=== PATIENT | male | born 1950 | race Caucasian/White ===

== ENCOUNTER → 2024-11-21 12:13 | Outpatient (REF) | payer MEDICARE, SELFPAY ==
--- NOTE | 2024-11-21 12:13 | S_PTH ---
PATIENT: Pascual Newell LOC: [facility] U#:[id number] AGE/SX: 74/M ROOM: RE11/21/[address]: Ekaterina Cardoza MD : 1950 BED: DIS: SPEC #: [id number] RECD: 11/21/24 12:27 STATUS: DAWOOD REMaurizio #: [id number] CYNTHIA: 11/21/24 12:[address]: Ekaterina Cardoza DEPT: [facility] Surgical RECD BY: Edwardo Medrano ENTERED: 11/21/24 12:28 SP TYPE: Surgical OTHR DR: UNKNOWN,DOCTOR Tissues: A - Skin Procedures: Hematoxylin and Eosin Stain Gross and Microscopic Level 4
--- OUTSIDE RECORDS SUMMARY | 2024-11-21 13:10 | XMS_ITS | Encounter Summary ---
Author Organization [facility] Address [address] [place] [address] Phone Care Team Providers Care Financial Service Representative Name Role Phone Rustam Fischer MD Primary Care Provider [phone] Reason for Visit * Reason Comments Medication Refill Encounter Details Date Type Department Care Team (Late st Contact Info) Description 11/15/2022 Refill [facility]2 [place] [address] Rustam Fischer MD #[address] [address] Medication Refill Social History Tobacco Use Types Packs/Day Years Used Date Smoking Tobacco: Former Cigarettes 1 13 0 09/28/1975 - 09/27/1988 Smokeless Tobacco: Current Chew Alcohol Use Standard Drinks/Week Comments Never 0 (1 standard drink = 0.6 oz pur e alcohol) AUDIT-C Answer Date Recorded Frequency of Alcohol Consumption Never 09/27/2018 Average Number of Drinks Not on file 019 Frequency of Binge Drinking Not on file 09/12 PHQ-2 Answer Date Recorded Total Score - Questions 1-9 0 09/13 Education Answer Date Recorded What is the highest level of school you have completed or the highest degree you have received? Some college, no degree 03/02/2022 Sex and Gender Information Value Date Recorded Sex Assigned at Not on file Legal Sex Male 10:25 PM CDT Gender Identity Not on file Sexual Orientation Not on file COVID-19 Exposure Response Date Recorded In the last 10 days, have yo u been in contact with someone who was confirmed or suspected to have Coronavirus/COVID-19? No / Unsure 11/05/2022 7:51 AM CDT documented as of this encounter Miscellaneous Notes * Telephone Encounter - Dianne Bruner RN - 11/16/2022 1:19 PM CDT Images from the original note were not included. Citalopram Hydrobromide Dispensed Days Supply Quantity Provider Pharmacy CITALOPRAM 10MG TABLETS 11/12/2022 90 90 Each Rustam Fischer MD [facility] #... documented in this encounter Plan of Treatment Upcoming Encounters Date Type Department Care Team (Late st Contact Info) Description 02/14/2025 9:30 AM CDT Lab [facility] #[address] [address] [facility]William Lab/Ancillary 02/21/2025 9:00 AM CDT Office Visit [facility] - [place] #2 [place] [address] Rustam Fischer MD #[address] [address] documented as of this encounter Visit Diagnoses Not on filedocumented in this encounter Additional Health Concerns Assessment Noted Time PHQ-9 Depression Total Score: 0 04/04/20 21 9:14 AM CDT documented as of this encounter Care Teams Financial Service Representative Relationship Specialty Start Date End Date Rustam Fischer MD #[address] [address] PCP - General Family Medicine 09/07/18 documented as of this encounter
--- OUTSIDE RECORDS SUMMARY | 2024-11-21 13:10 | XMS_ITS | Encounter Summary ---
Author Organization [facility] Address [address] [place] [address] Phone Care Team Providers Care Heat Treater Head Name Role Phone Rustam Fischer MD Primary Care Provider [phone] Reason for Visit * Reason Comments Medication Refill Encounter Details Date Type Department Care Team (Late st Contact Info) Description 04/30/2020 Refill [facility] [address] [place], [place] [address] Rustam Fischer MD #[address] [address] Medication Refill Social History Tobacco Use Types Packs/Day Years Used Date Smoking Tobacco: Former Cigarettes 1 13 0 09/28/1975 - 09/27/1988 Smokeless Tobacco: Never Alcohol Use Standard Drinks/Week Comments Never 0 (1 standard drink = 0.6 oz pur e alcohol) AUDIT-C Answer Date Recorded Frequency of Alcohol Consumption Never 09/27/2018 Average Number of Drinks Not on file 019 Frequency of Binge Drinking Not on file 09/12 PHQ-2 Answer Date Recorded PHQ-2 Score 0 02/28/2019 Sex and Gender Information Value Date Recorded Sex Assigned at Not on file Legal Sex Male 10:25 PM CDT Gender Identity Not on file Sexual Orientation Not on file documented as of this encounter Miscellaneous Notes * Telephone Encounter - Rustam Fischer MD - 05/01/2020 1:16 PM CST Prescription approved. Please call in NEERING SECRETARY * Telephone Encounter - Claudia Simmons RN - 05/01/2020 1:01 PM ENGINEERING SECRETARY Patient calling to check the status of this request Advised patient that he is due for an appointment prior to refilling medication Appointment scheduled for 05-06-2020 Patient is requesting a short supply sent to pharmacy until he can be seen by PCP Rx pended Routing to provider for review and approval. NEERING SECRETARY * Telephone Encounter - Zulema Araujo RN - 04/30/2020 3:38 PM CST Medication failed the protocol, provider to review and approve the medication order if appropriate. Requested Prescriptions Pending Prescriptions Disp Refills lisinopril (PRINIVIL, ZESTRIL) 10 MG Tablet [Pharmacy Med Name: LISINOPRIL 10MG TABLETS] 90 Tab 2 Sig: TAKE 1 TABLET BY MOUTH DAILY Cardiovascular: CONRAD Inhibitors Failed - 04/30/2020 2:47 PM Failed - Valid encounter within last 12 months Past Office Visits Recent Outpatient Visits 1 year ago Essential hypertension [facility] - Angelic Birmingham APN, CNP 1 year ago Essential [facility] [place] [place] [facility] 1 year ago Physical exam, annual (Adult) [facility] - Rustam Lucia MD Upcoming Appointments [facility] - Recent and Past Visits Recent Visits Date Type Provider Dept 04/04/19 Office Visit Angelic Lazar APN, CNP [facility] 03/22/19 Office Visit Angelic Lazar APN, CNP [facility] Showing recent visits within past 460 days with a meds authorizing provider and meeting all other requirements Future Appointments No visits were found meeting these conditions. Showing future appointments within next 90 days with a meds authorizing provider and meeting all other requirements Failed - Last BP in normal range BP Readings from Last 1 Encounters: 04/04/19 130/76 NEERING SECRETARY documented in this encounter Plan of Treatment Upcoming Encounters Date Type Department Care Team (Late st Contact Info) Description 02/14/2025 9:30 AM CDT Lab [facility] [address] [address] [facility] 02/21/2025 9:00 AM CDT Office Visit [facility] [place] #2 [place] [address] Rustam Fischer MD #[address] [address] documented as of this encounter Visit Diagnoses Not on filedocumented in this encounter Additional Health Concerns Assessment Noted Time PHQ-9 Depression Total Score: 0 09/08/19 19 12:00 PM CDT documented as of this encounter Care Teams Heat Treater Head Relationship Specialty Start Date End Date Rustam Fischer MD [address] [address] PCP - General Family Medicine 09/07/18 documented as of this encounter
--- OUTSIDE RECORDS SUMMARY | 2024-11-21 13:10 | XMS_ITS | Continuity of Care Document ---
Author Organization [facility] Address [address] [place] [address] [address] [place] [address] Phone Care Team Providers Care Speech Writer Name Role Phone Landon Hickey MD, FACS Unavailable Unavailab le Allergies, Adverse Reactions, Alerts Substance Reaction Status Criticality No Known Allergies Active No Inform ation Medications Medication Instructions Dosage Effective Dates (start - stop) Status Comments ACYCLOVIR 400MG TABLETS TAKE 1 TABLET BY MOUTH EVERY DAY - Active lisinopril 10 mg tablet take 1 tablet by oral route every day 10 MG - Active Procedures Procedure Date No Charge Optomap Fundus Photos 021 Eye Exam & Treatment Office/outpatient Visit, Est No Charge Optomap Fundus Photos 021 Office/outpatient Visit, Est Office/outpatient Visit, Est Office/outpatient Visit, Est Office/outpatient Visit, Est Office/outpatient Visit, Est Office/outpatient Visit, Est Office/outpatient Visit, Est Corneal Pachymetry Eye Exam, New Patient Advance Directives Directive Yes / No Effective Date File Name No Information Encounters Encounter Description Practice Location Reason(s) For Visit Diagnoses Date Provider Providers Copied on Encounter [facility], [id number] [place] [address] [address], [place], [place], [id number], [place] tel:[phone] [place] No Information 3 Edelmira Navarrete. [address] [place] [address], [address], [place], [place], [id number], [place]. tel:[phone] [facility], [address] [place] [address] [address], [place], [place], [address], [place] tel:[phone] SEC [place] Mcdaniel No Information 2 Edelmira Navarrete. [address] [place] [address] [address] [facility], [address], [place], [place], [address], [place]. tel:[phone] [facility], [address] [place] [address] [address], [place], [place], [address], [place] [phone] SEC William ARELLANO Professional Cataract evaluation (chief complaint) Nevus of iris of right eyeMinor opacity of cornea, right eyeAge-relate d nuclear cataract, right eyeCombined forms of age-related cataract, left eye 1 Albaro Orozco. [address] [facility], [address], [place], [place], [address], [place]. tel:[phone] Referring Provider: Rustam Fischer MD S, [address] [place], [address]. tel:[phone] Office/outpa tient Visit, [facility], [address] [place] [address] [address], [place], [place], [address], [place] tel:[phone] SEC Randall Mcdaniel Complete Exam (chief complaint) Combined forms of age-related cataract, bilateralMino r opacity of cornea, right eye 1 Edelmira Navarrete. [address] [place] [address] [address] [facility], [address], [place], [place], [address], [place]. tel:[phone] Referring Provider: Rustam Fischer MD S, [address] [place], [address]. tel:[phone] Office/outpa tient Visit, [facility], [address] [place] [address] [address], [place], [place], [address], [place] tel:[phone] SEC William ARELLANO Professional 3 week f/u HZV (chief complaint) HSV (herpes simplex virus) dendritic keratitis Oct- 9 Augustina OD Kennedy. [address] [facility], [address] [place] [address], [place], [address], [place]. tel:[phone] Referring Provider: Rustam Laureano, [address] [place], [address]. tel:[phone] Office/outpa tient Visit, [facility], [address] [place] [address] [address], [place], [place], [address], [place] [phone] SEC William ARELLANO Professional 1 week cornea check (chief complaint) HSV (herpes simplex virus) dendritic keratitisCorn eal edema of right eye Feb- 9 Augustina OD Kennedy. [address] [facility], [address] [place] [address], [place], [address], [place]. tel:[phone] Referring Provider: Rustam Laureano, [address] [place], [address]. tel:[phone] Office/outpa tient Visit, [facility], [address] [place] [address] [address], [place], [place], [address], [place] tel:[phone] SEC William ARELLANO Professional mo Cornea check (chief complaint) HSV (herpes simplex virus) dendritic keratitisCorn eal epithelial defect Feb- 9 Augustina OD Kennedy. [address] [facility], [address] [place] [address], [place], [address], [place]. tel:[phone] Referring Provider: Rustam Laureano, [address] [place], [address]. tel:[phone] Office/outpa tient Visit, [facility], [address] [place] [address] [address], [place], [place], [address], [place] tel:[phone] SEC William ARELLANO Professional 2 wk Cornea check (chief complaint) Acute iritis of right eye Jan- 9 Augustina OD Kennedy. [address] [facility], [address] [place], [address], [place]. tel:[phone] Referring Provider: Rustam Laureano, [address] [place], [address]. tel:[phone] Office/outpa tient Visit, [facility], [address] [place] [address] [address], [place], [place], [address], [place] tel:[phone] SEC William ARELLANO Professional Follow up visit (chief complaint) HSV (herpes simplex virus) dendritic keratitis 9 Augustina VANE Kennedy. [address] [facility], [address] [facility], [place], [address], [place]. tel:[phone] Referring Provider: Rustam Laureano, [address] [place], [address]. tel:[phone] Office/outpa tient Visit, [facility], [address] [place] [address] [address], [place], [place], [address], [place] tel:[phone] SEC William ARELLANO Professional office visit (chief complaint) Corneal epithelial defectHSV (herpes simplex virus) dendritic keratitis 9 Edelmira Navarrete. [address] [place] [address] [address] [facility], [address], [place], [place], [address], [place]. tel:[phone] Referring Provider: Rustam Laureano, [address] [place], [address]. tel:[phone] Office/outpa tient Visit, [facility], [address] [place] [address] [address], [place], [place], [address], [place] tel:[phone] SEC William ARELLANO Professional 4 day f/u to Cornea Edema (chief complaint) Corneal edema of right eyeAcute iritis of right eye 9 Albaro Orozco. [address] [facility], [address], [place], [place], [address], [place]. tel:[phone] Referring Provider: Rustam Laureano, [address] [facility] [place], [address]. tel:[phone] [facility], [address], [place], [place], [address], [place] tel:[phone] SEC William ARELLANO Professional No Information 9 Albaro Orozco. [address] [facility], [address], [place], [place], [address], [place]. tel:[phone] [facility], [address], [place], [place], [address], [place] tel:[phone] SEC William ARELLANO Professional Office Visit (chief complaint) Corneal edema of right eyeNuclear sclerosis of both eyes 9 Augustina Benavides. [address] [facility], 6th Floor, [place], [address], . tel:[phone] Referring Provider: Rustam Fischer MD S, [address] [place], [address]. tel:[phone] [facility], [address], [place], [place], [address], [place] tel:[phone] SEC William ARELLANO Professional No Information 9 Albaro Orozco. [address] [facility] [address], [place], [place], [address], [place]. tel:[phone] Family History Family Member Type Diagnosis Age At Onset Problem (finding) Family history of Diabe padmini mellitus Payers Payer name Insurance type Covered republican ID Authoriza tion(s) [employer] Medicare CI [id number] Social History Type Description Quantity Date Captured Comments Sex Male Smoking Status No Information Chief Complaint And Reason For Visit No Information Reason For Referral Reason For Referral No Information Plan Of Treatment Date Type Action Status Goal Tobacco cessation counseling completed Patient Education Cataracts: Care Instruc tions completed Patient Education Cataracts: Care Instruc tions completed Patient Education Iritis: Care Kathrine solorzano completed History Of Present Illness Encounter Date Complaint History Of Prese nt Illness Cataract evaluation The 70 year old male presents for evaluation of Cataract evaluation in the right eye and left eye. Hx of HZV OD and Cataracts OU. Patient denies any changes with eyes. VA is fine. Patient states he does not want to consider cataract sx at this time not until he has to. Patient taking Acyclovir qd po. Complete Exam The 69 year old male presents for evaluation of Complete Exam in the right eye and left eye. Patient has hx of HZV OD and cataracts ou. Patient takes acyclovir 400 mg po qd. Refills sent. Patient uses a PF AT prn. Patient states OD liu a lot. Patient states every now and then he has FBS and uses Pred but not often. 3 week f/u HZV The 68 year old male presents for evaluation of 3 week f/u HZV in the right eye. Patient states the right eye seems to be doing better today. Patient taking acyclovir and referesh tears prn. 1 week cornea check The 68 year old male presents for evaluation of 1 week cornea check in the right eye. Hx of HZV OD. Patient states the right eye seems better. Patient states the Zirgan gtt never came into the pharm for him to bean picker. Patient states the last couple of days the right eye was very cloudy but got better. today. Patient using art tears and Acyclovir 400 mg BID po he has 1 pill left. 1 mo Cornea check The 68 year ol d male presents for evaluation of 1 mo Cornea check in the right eye. Pt reports he is using Acyclovir 400 mg BID PO (just restarted yesterday), PF AFT TID-QID OD, and Pred QD PRN OD. Pt reports OD was doing really good for a long time, but last week it started to get fuzzy again. 2 wk Cornea check The 68 year ol d male presents for evaluation of 2 wk Cornea check in the right eye. Pt reports he is using Pred BID OD. Pt reports OD is doing a lot better. Follow up visit The 68 year old male presents for a 3 month cornea check OD. Patient states OD was doing really good until a few days ago. Patient states OD seems hazy and a little irritated and patient started using Pred again but is out of Pred. Patient is not taking Acyclovir at this time. office visit The 68 year old male presents for a 4 day follow up for Acute Iritis OD per Dr. Irvin. Patient is taking Acyclovir 400mg 5x a day and using Pred Q2hrwa. Patient states vision OD is 50% better. Unable to perform pachs OD. 4 day f/u to Cornea Edema The 68 year old male presents for evaluation of 4 day f/u to Cornea Edema in the right eye. Hx of Cornea Edema and Cataracts OU. Patient states he thinks his VA is better still blurry but not as bad. Patient using Tamia 128 qd OD and Ket TID OD. Patient states the instructions on Tamia 128 said to use once a day not twice a day. Several attempts unable to get pachs OD. 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 Patient had an eye exam at the beginning of the year and there were no problems. Patient states his right eye felt like it had something in it two weeks ago and even now his right eye is still blurry. Patient also states the right eye is very sensitive to light. Patient states he also notes occasional floaters in both eyes. 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
--- OUTSIDE RECORDS SUMMARY | 2024-11-21 13:10 | XMS_ITS | Clinical Summary ---
Author Organization [facility] Address [address] [place] [address] Phone Care Team Providers Care Conference Center Manager Name Role Phone Rustam Fischer MD Primary Care Provider [phone] Allergies No known active allergies Medications acyclovir (ZOVIRAX) 400 MG Tablet TK 1 T PO QD 0 Active Glucose Blood (OneTouch Ultra) StripIndication s:Prediabetes Test fasting sugars twice weekly 50 Strip 3 2 Active Glucose Blood (Accu-Chek Karen Plus) StripIndication s:Prediabetes Test blood sugars twice weekly 100 Strip 3 2 Active naproxen (NAPROSYN) 500 MG Tablet Take 1 Tablet by mouth 2 times daily (with meals). 60 Tablet 6 3 Active testosterone (Testim) 50 MG/5GM (1%) GelIndications: Hypogonadism in male Apply 25 mg daily. 90 Packet 3 4 Active Additional Information Patient not taking.Reported on 11/17/2024 Testosterone (AndroGel) 20.25 MG/1.25GM (1.62%) GelIndications: Hypogonadism in male 20.25 mg by Transdermal route daily. 1 Box . 3 4 Active Additional Information Patient not taking.Reported on 11/17/2024 busPIRone (BUSPAR) 5 MG Tablet TAKE 1 TABLET BY MOUTH THREE TIMES DAILY 270 Tablet 4 Active lisinopril (PRINIVIL, ZESTRIL) 10 MG Tablet TAKE 1 TABLET BY MOUTH DAILY 90 Tablet 1 5 Active amoxicillin (AMOXIL) 500 MG Capsule Take 1 Capsule by mouth 2 times daily for 10 days. 20 Capsule 5 11/28/19 25 Active Active Problems No known active problems Encounters Date Type Department Care Team Description 11/17/2024 4:30 PM CDT [facility] [address] [place] [address] Jolynn Farrell, DRYWALL FINISHER FOREMAN, SPACE ENGINEER Pharyngitis, unspecified etiology (Primary Dx); Sore throat Discharge Disposition: Discharged to home or Selfcare 11/17/2024 Travel from Last 3 Months Immunizations Immunization Administration Dates Next Due Covid-19, Mrna, Lnp-s, PF, 1 00 mcg/0.5 mL Dose (Moderna) 10/10/2020,09/12/2020 Influenza Vaccine, Quadrivalent, PF 08/2023,02/17/2022,04/04/2021,2019,03/22/2019 Influenza, Injectable, Quadrivalent 03/02/2018,0 06/23/2016 Influenza, Trivalent, Adjuvanted, PF 08/14/2024 Pneumococcal Vaccine - 13 Valent 01/27/2017,09/13 Pneumococcal Vaccine Adult - 23 Valent 09/07/2018,03/02/2018,03/02/2018 TDAP Vaccine 11/23/2019,10/02/2015 Family History Medical History Relation Name Comments Coronary Artery Disease Father Diabetes Father Kidney Disease Father Cancer Maternal Grandmother leukemi a Cancer Mother breast Lung Cancer Mother Coronary Artery Disease Paternal Grandfather Cancer Son Sullivan sarcoma Relation Name Status Comments Father Maternal Grandmother Mother Paternal Grandfather Son Social History Tobacco Use Types Packs/Day Years Used Date Smoking Tobacco: Former Cigarettes 1 13 0 09/28/1975 - 09/27/1988 Smokeless Tobacco: Current Chew Tobacco Cessation:Ready to Q uit: Not Asked; Counseling Given: Not Answered Alcohol Use Standard Drinks/Week Comments Never 0 (1 standard drink = 0.6 oz pur e alcohol) [facility] Utilities Answer Date Recorded In the past 12 months has th e electric, gas, oil, or water company threatened to shut off services in your home? No 08/12/2024 Social Connection and Isolation Panel Answer Date Recorded In a typical week, how many times do you talk on the phone with family, friends, or neighbors? More than three times a week 08/12/2024 How often do you get togethe r with friends or relatives? Three times a week 08/12/2024 How often do you attend chur or sikhism services? More than 4 times per year 08/12/2024 Do you belong to any clubs o r organizations such as yazidi groups, unions, fraternal or athletic groups, or school groups? No 08/12/2024 How often do you attend meet ings of the clubs or organizations you belong to? Never 08/12/2024 Are you , , di vorced, , never , or living with a partner? 08/12/2024 AUDIT-C Answer Date Recorded Q1: How often do you have a drink containing alcohol? Never 08/12/2024 Q2: How many drinks containi ng alcohol do you have on a typical day when you are drinking? Patient does not drink Q3: How often do you have si x or more drinks on one occasion? Never 08/12/2024 Overall Financial Resource Strain (CARDIA) Answe r Date Recorded How hard is it for you to pa y for the very basics like food, housing, medical care, and heating? Somewhat hard 08/12/2024 PHQ-2 Answer Date Recorded Total Score - Questions 1-9 0 08/2023 [facility] - Occupational Stress Questionnaire Answer Date Recorded Do you feel stress - tense, restless, nervous, or anxious, or unable to sleep at night because your mind is troubled all the time - these days? To some extent 08/12/2024 Exercise Vital Sign Answer Date Recorde d On average, how many days pe r week do you engage in moderate to strenuous exercise (like a brisk walk)? 5 days 08/12/2024 On average, how many minutes do you engage in exercise at this level? 30 min 08/12/2024 Hunger Vital Sign Answer Date Recorded Within the past 12 months, y ou worried that your food would run out before you got the money to buy more. Sometimes true Within the past 12 months, t he food you bought just didn't last and you didn't have money to get more. Often true 06/2024 PRAPARE - Transportation Answer Date Re corded In the past 12 months, has l ack of transportation kept you from medical appointments or from getting medications? No 06/2024 In the past 12 months, has l ack of transportation kept you from meetings, work, or from getting things needed for daily living? Yes 08/12/2024 Housing Stability Vital Sign Answer Jose e Recorded In the last 12 months, was t here a time when you were not able to pay the mortgage or rent on time? No 06/15/2023 In the last 12 months, how many places have you lived? 1 06/15/2023 In the last 12 months, was t here a time when you did not have a steady place to sleep or slept in a senior living (including now)? No 06/15/2023 Housing Stability Vital Sign Answer Jose e Recorded In the last 12 months, was t here a time when you were not able to pay the mortgage or rent on time? No 08/12/2024 In the past 12 months, how m any times have you moved where you were living? 0 08/12/2024 At any time in the past 12 m onths, were you homeless or living in a senior living (including now)? No 08/12/2024 Education Answer Date Recorded What is the highest level of school you have completed or the highest degree you have received? Some college, no degree 03/02/2022 Sex and Gender Information Value Date Recorded Sex Assigned at Not on file Legal Sex Male 10:25 PM CDT Gender Identity Not on file Sexual Orientation Not on file Last Filed Vital Signs Vital Sign Reading Time Taken Comments Blood Pressure 132/68 11/17/2024 4:36 PM CDT Pulse 98 11/17/2024 4:36 PM CDT Temperature 36.3 C (97.4 F) 11/17/2024 4:36 PM CDT Respiratory Rate 20 11/17/2024 4:36 PM CDT Oxygen Saturation 98% 11/17/2024 4:36 PM CDT Inhaled Oxygen Concentration - - Weight 123.4 kg (272 lb) 08/14/2024 3:06 PM PRESIDENT AND CEO Height 180.3 cm (5' 11) 08/14/2024 3:06 PM PRESIDENT AND CEO Body Mass Index 37.94 08/14/2024 3:06 PM PRESIDENT AND CEO Plan of Treatment Upcoming Encounters Date Type Department Care Team (Late st Contact Info) Description 02/14/2025 9:30 AM CDT Lab [facility] [address] [address] [facility] Lab/Ancillary 02/21/2025 9:00 AM CDT [facility] [place] [address] [place] [address] Rustam Fischer MD [address] [address] Health Maintenance Due Date Last Done Comments Hepatitis C Virus (HCV) Screening 1950 Cologuard 1995 Immunochemical Fecal Occult Blood 1995 Zoster Immunization (1 of 2) 2000 AAA Screening Ultrasound 2015 Colonoscopy 10/20/2023 10/19/2018 Colorectal Cancer Screening 10/20/2023 SARS-COV-2 Immunization ( season) 2024 04/21/2021, 10/10/2020, 09/12/2020 Respiratory Syncytial Virus (RSV) Immunization (Adult) (1 - 1-dose 75+ series) 2025 Td Immunization Every 10 Years (Adults With 1 Tdap) 11/22/2029 11/23/2019, 10/02/2015 Pneumococcal Immunization (50+ years) Completed 09/07/2018, 03/02/2018, 03/02/2018, Additional history exists Pneumococcal Immunization Combined Discontinued 09/07/2018, 03/02/2018, 03/02/2018, Additional history exists PSA Discussion Discontinued 06/30/2024 Influenza Immunization Completed , 06/16/2023, 02/17/2022, Additional history exists Hepatitis B Immunization Aged Out No longer eligible based on patient's age to complete this topic Human Papillomavirus (HPV) Immunization Aged Out No longer eligible based on patient's age to complete this topic Meningococcal Immunization (ACWY) Aged Out No longer eligible based on patient's age to complete this topic Rotavirus Immunization Aged Out No lo nger eligible based on patient's age to complete this topic Procedures Procedure Name Priority Date/Time Associated Diagnosis Comments POC GROUP A STREP BY MOLECULAR Routine 11/17/2024 4:45 PM CDT Sore throat PSA SCREEN Routine 06/30/2024 9:23 AM PRESIDENT AND CEO Screening for prostate cancer from Last 3 Months or Most Recently Relevant to Health Maintenance Results * POC GROUP A STREP BY MOLECULAR (11/17/2024 4:45 PM CDT) STREP A DNA Negative Negative, Invalid PROCEDURE CONTROL Valid 11/17/2024 4:45 PM CDT us Jolynn Farrell DRYWALL FINISHER FOREMAN, SPACE ENGINEER POINT OF CARE TEST ING (MANUAL) Final Result * PSA SCREEN (06/30/2024 9:23 AM PRESIDENT AND CEO) PSA SCREEN, TOTAL 0.29 <4.00 ng/mL 06/30/2024 1:38 PM PRESIDENT AND CEO [facility] Blood Venipuncture / Unknown 06/30/2024 9:23 AM PRESIDENT AND CEO 06/30/2024 9:23 AM PRESIDENT AND CEO Narrative [facility] - 06/30/2024 1:38 PM PRESIDENT AND CEO The ALINITY Total PSA assay is a Chemiluminescent Microparticle Immunoassay (CMIA) for the quantitative determination of total PSA (both free PSA and PSA complexed to [id number]) in human serum. Total PSA values obtained with different assay methods, including Aranda PSA assays, cannot be used interchangeably. us Rustam Fischer MD CHEMISTRY ORDERABLES Final Re sult [facility] [address] [place] [address] from Last 3 Months or Most Recently Relevant to Health Maintenance Insurance MEDICARE C [employer] Care Teams Conference Center Manager Relationship Specialty Start Date End Date Rustam Fischer MD [address] [address] PCP - General Family Medicine 09/07/18
--- OUTSIDE RECORDS SUMMARY | 2024-11-21 13:10 | XMS_ITS | Encounter Summary ---
Author Organization [facility] Address [address] [place] [address] Phone Care Team Providers Care Public Health Training Assistant Name Role Phone Rustam Fischer MD Primary Care Provider [phone] Reason for Visit * Reason Comments Medication Refill Encounter Details Date Type Department Care Team (Late st Contact Info) Description 10/30/2022 [facility] [address] [place] [address] Rustam Fischer MD [address] [address] Medication Refill Social History Tobacco Use Types [...] suspected to have Coronavirus/COVID-19? No / Unsure 10/07/2022 10:21 AM CDT documented as of this encounter Miscellaneous Notes * Telephone Encounter - Dianne Bruner RN - 10/30/2022 9:45 AM CDT Images from the original note were not included. Lisinopril Dispensed Days Supply Quantity Provider Pharmacy LISINOPRIL 10MG TABLETS 10/23/2022 90 90 Each Rustam Fischer MD [facility] #... LISINOPRIL 10MG TABLETS 07/23/2022 90 90 Each Rustam Fischer MD [facility] #... documented in this encounter Plan of Treatment Upcoming Encounters Date Type Department Care Team (Late st Contact Info) Description 02/14/2025 9:30 AM CDT Lab [facility] [address] [address] [facility] Lab/Ancillary 02/21/2025 9:00 AM CDT [facility] [place] [address] [place] [address] Rustam Fischer MD #[address] [address] documented as of this encounter Visit Diagnoses Not on filedocumented in this encounter Additional Health Concerns Assessment Noted Time PHQ-9 Depression Total Score: 0 04/04/20 21 9:14 AM CDT documented as of this encounter Care Teams Public Health Training Assistant Relationship Specialty Start Date End Date Rustam Fischer MD [address] [address] PCP - General Family Medicine 09/07/18 documented as of this encounter
--- OUTSIDE RECORDS SUMMARY | 2024-11-21 13:10 | XMS_ITS | Encounter Summary ---
Author Organization [facility] Address [address] [place] [address] Phone Care Team Providers Care Apprentice Pattern Maker Name Role Phone Rustam Fischer MD Primary Care Provider [phone] Reason for Visit * Reason Comments Medication Refill Encounter Details Date Type Department Care Team (Late st Contact Info) Description 11/29/2023 Refill [facility] - Family Medicine [facility] [address] [place] [address] Rustam Fischer MD [address] [address] Medication Refill Social History Tobacco Use Types Packs/Day Years Used Date Smoking Tobacco: Former Cigarettes 1 13 0 09/28/1975 - 09/27/1988 Smokeless Tobacco: Current Chew Alcohol Use Standard Drinks/Week Comments Never 0 (1 standard drink = 0.6 oz pur e alcohol) [facility] Utilities Answer Date Recorded In the past 12 months has [employer] electric, gas, oil, or water company threatened to shut off services in your home? No 06/15/2023 Social Connection and Isolation Panel Answer Date Recorded In a typical week, how many times do you talk on the phone with family, friends, or neighbors? More than three times a week 06/15/2023 How often do you get togethe r with friends or relatives? More than three times a week 06/15/2023 How often do you attend chur ch or pentecostalism services? More than 4 times per year 06/15/2023 Do you belong to any clubs o r organizations such as restorationist groups, unions, fraternal or athletic groups, or school groups? No 06/15/2023 How often do you attend meet ings of the clubs or organizations you belong to? Patient declined 06/15/2023 Are you , , di vorced, , never , or living with a partner? 06/15/2023 AUDIT-C Answer Date Recorded Q1: How often do you have a drink containing alcohol? Never 06/15/2023 Q2: How many drinks containi ng alcohol do you have on a typical day when you are drinking? Patient does not drink Q3: How often do you have si x or more drinks on one occasion? Never 06/15/2023 Overall Financial Resource Strain (CARDIA) Answe r Date Recorded How hard is it for you to pa y for the very basics like food, housing, medical care, and heating? Somewhat hard 06/15/2023 PHQ-2 Answer Date Recorded Total Score - Questions 1-9 0 08/2023 [facility] - Occupational Stress Questionnaire Answer Date Recorded Do you feel stress - tense, restless, nervous, or anxious, or unable to sleep at night because your mind is troubled all the time - these days? To some extent 06/15/2023 Exercise Vital Sign Answer Date Recorde d On average, how many days pe r week do you engage in moderate to strenuous exercise (like a brisk walk)? 6 days 06/15/2023 On average, how many minutes do you engage in exercise at this level? 30 min 06/15/2023 Hunger Vital Sign Answer Date Recorded Within the past 12 months, y ou worried that your food would run out before you got the money to buy more. Sometimes true Within the past 12 months, t he food you bought just didn't last and you didn't have money to get more. Sometimes true 07/2023 PRAPARE - Transportation Answer Date Re corded In the past 12 months, has l ack of transportation kept you from medical appointments or from getting medications? Yes 07/2023 In the past 12 months, has l ack of transportation kept you from meetings, work, or from getting things needed for daily living? Yes 06/15/2023 Housing Stability Vital Sign Answer Jose [...] place to sleep or slept in a residential (including now)? No 06/15/2023 Education Answer Date Recorded What is the [...] encounter Miscellaneous Notes * Telephone Encounter - Kathy Estrada RN - 11/29/2023 9:51 AM CDT Medication failed the protocol, provider to review and approve the medication order if appropriate. Requested Prescriptions Pending Prescriptions Disp Refills busPIRone (BUSPAR) 5 MG Tablet [Pharmacy Med Name: BUSPIRONE 5MG TABLETS] 270 Tablet 0 Sig: TAKE 1 TABLET BY MOUTH THREE TIMES DAILY Buspirone (6 Month Refill Only) Protocol Failed - 11/29/2023 9:38 AM Failed - Has an encounter in the past 6 months with a depression or anxiety visit diagnosis Passed - Visit with relevant provider in past 6 months or upcoming 90 days Recent Visits Date Type Provider Dept 06/16/23 Office Visit Rustam Fischer MD [facility] Showing recent visits within past 182 days and meeting all other requirements Future Appointments Date Type Provider Dept 12/15/23 Appointment Rustam Fischer MD [facility] Showing future appointments within next 90 days and meeting all other requirements Passed - Patient has established therapy with Buspirone for at least 6 months documented in this encounter Plan of Treatment Upcoming Encounters Date Type Department Care Team (Late st Contact Info) Description 02/14/2025 9:30 AM CDT Lab [facility] [address] [address] [address] [facility] Lab/Ancillary 02/21/2025 9:00 AM CDT [facility] [place] [address] [place] [address] Rustam Fischer MD [address] [address] documented as of this encounter Visit Diagnoses Not on filedocumented in this encounter Additional Health Concerns Assessment Noted Time PHQ-9 Depression Total Score: 0 06/16/19 24 8:44 AM CATTLE SHIPPER documented as of this encounter Care Teams Apprentice Pattern Maker Relationship Specialty Start Date End Date Rustam Fischer MD [address] [address] PCP - General Family Medicine 09/07/18 documented as of this encounter
--- OUTSIDE RECORDS SUMMARY | 2024-11-21 13:10 | XMS_ITS | Encounter Summary ---
Author Organization [facility] Address [address] [place] [address] Phone Care Team Providers Care Print Room Worker Name Role Phone Rustam Fischer MD Primary Care Provider [phone] Reason for Visit * Reason Comments Medication Refill Encounter Details Date Type Department Care Team (Late st Contact Info) Description 08/24/2023 Refill [facility] - Family Medicine [facility] [address] [place] [address] Rustam Fischer MD #[address] [address] Medication Refill Social History Tobacco Use Types Packs/Day Years Used Date Smoking Tobacco: Former Cigarettes 1 13 0 09/28/1975 - 09/27/1988 Smokeless Tobacco: Current Chew Alcohol Use Standard Drinks/Week Comments Never 0 (1 standard drink = 0.6 oz pur e alcohol) [facility] Utilities Answer Date Recorded In the past 12 months has [employer] electric, gas, oil, or water company threatened [...] often do you attend chur ch or oriental orthodox services? More than 4 times per year 06/15/2023 Do you belong to any clubs o r organizations such as baptist groups, unions, fraternal or athletic groups, or [...] Total Score - Questions 1-9 0 08/2023 [facility] - Occupational Stress Questionnaire Answer Date Recorded [...] place to sleep or slept in a alf (including now)? No 06/15/2023 Education Answer Date [...] Telephone Encounter - Dianne Bruner RN - 08/24/2023 11:45 AM CDT Medication(s) [facility] and [facility] Med[facility] Refill Standing Order for Pediatricand Adult Patients. Requested Prescriptions Pending Prescriptions Disp Refills lisinopril (PRINIVIL, ZESTRIL) 10 MG Tablet [Pharmacy Med Name: LISINOPRIL 10MG TABLETS] 90 Tablet 1 Sig: TAKE 1 TABLET BY MOUTH DAILY CONRAD Inhibitors Protocol Passed - 08/24/2023 3:54 AM Passed - Serum potassium on record in past 12 months POTASSIUM Date Value Ref Range Status 06/02/2023 5.5 (H) 3.5 - 5.1 mmol/L Final Passed - Blood pressure on record in past 12 months Clinician-entered: BP Readings from Last 3 Encounters: 06/16/23 134/78 11/05/22 124/68 04/08/22 124/80 Patient-entered: No data recorded Passed - Visit with relevant provider in past 12 months or upcoming 90 days Recent Visits Date Type Provider Dept 06/16/23 Office Visit Rustam Fischer MD [facility] 11/05/22 Office Visit Rustam Fischer MD [facility] Showing recent visits within past 365 days and meeting all other requirements Future Appointments No visits were found meeting these conditions. Showing future appointments within next 90 days and meeting all other requirements Passed - GFR on record in past 12 months GFR, EST. NONAFRICAN Date Value Ref Range Status 06/02/2023 >60 >=60 Final documented in this encounter Plan of Treatment Upcoming Encounters Date Type Department Care Team (Late st Contact Info) Description 02/14/2025 9:30 AM CDT Lab [facility] #[address] [address] Lab [facility] Lab/Ancillary 02/21/2025 9:00 AM CDT [facility] [place] [address] [facility] [place] [address] Rustam Fischer MD #[address] [address] documented as of this encounter Visit Diagnoses Not on filedocumented in this encounter Additional Health Concerns Assessment Noted Time PHQ-9 Depression Total Score: 0 06/16/19 24 8:44 AM BOX LINING MACHINE FEEDER documented as of this encounter Care Teams Print Room Worker Relationship Specialty Start Date End Date Rustam Fischer MD #[address] [address] PCP - General Family Medicine 09/07/18 documented as of this encounter
--- OUTSIDE RECORDS SUMMARY | 2024-11-21 13:10 | XMS_ITS | Encounter Summary ---
Author Organization [facility] Address [address] [place] [address] Phone Care Team Providers Care Fisher Purse Seine Name Role Phone Rustam Fischer MD Primary Care Provider [phone] Reason for Visit * Reason Comments Medication Refill Encounter Details Date Type Department Care Team (Late st Contact Info) Description 05/01/2020 [facility]ill [facility] [address] [place], [place] [address] Rustam Fischer MD #[address] [address] Medication Refill Social History Tobacco Use Types [...] encounter Miscellaneous Notes * Telephone Encounter - Shruti Brown, RN - 05/01/2020 3:13 PM CST PCP authorized today UTER EDUCATION PROFESSOR documented in this encounter Plan of Treatment Upcoming Encounters Date Type Department Care Team (Late st Contact Info) Description 02/14/2025 9:30 AM CDT Lab [facility] #[address] [address] [facility] Lab/Ancillary 02/21/2025 9:00 AM CDT [facility] [place] [address] [place] [address] Rustam Fischer MD [address] [address] documented as of this encounter Visit Diagnoses Not on filedocumented in this encounter Additional Health Concerns Assessment Noted Time PHQ-9 Depression Total Score: 0 09/08/19 19 12:00 PM CDT documented as of this encounter Care Teams Fisher Purse Seine Relationship Specialty Start Date End Date Rustam Fischer MD [address] [place] [address] PCP - General Family Medicine 09/07/18 documented as of this encounter
== END ==
LOC: ANHLAB 12:13
PROVIDERS: Visit Provider Plastic Surgery
DX: C44.91 Basal cell carcinoma of skin, unspecified (principal)
CPT/HCPCS: 88305